=== PATIENT | male | born 1955 | race Caucasian/White ===

== ENCOUNTER 2017-05-12 09:14 | Inpatient (IN) | payer OTHER ==
[2017-05-12 12:23] VITALS: BMI 24.7
--- NOTE | 2017-05-12 13:50 | HP ---
COWS - Scale Resting Pulse: 1= [place] 81-100 Sweatin=Flushed/Facial Moisture Restless Observation: 3= Extraneous Movement Pupil Size: 2= Moderately Dilated Bone or Joint Aches: 2= Severe Diffuse Aches Runny Nose/ Eye Tearin= Runny Nose/Eyes GI Upset > 30mins: 3= Vomiting/Diarrhea Tremor Observation: 2= Slight Tremor Visible Yawning Observation: 2= >3x During Session Anxiety or Irritability: 2=Irritable/Anxious Goose Flesh Skin: 0=Smooth Skin COWS Score: 21 Admission ROS BHS - HPI Chief Complaint: i need help to stop using heroin Allergies/Adverse Reactions: Allergies Allergy/AdvReac Type Severity Reaction Status Date / Time No Known Allergies Allergy Verified 05/12/17 13:34 History of Present Illness: this 61 years old male with heroin dependence,requested detox,never been in detox before history of hepatitis c treated weight loss depression varicose vein of left leg Exam Limitations: No Limitations - Ebola screening Have you traveled outside of the country in the last 21 days: No Have you had contact with anyone from an Ebola affected area: No Have you been sick,other than usual withdrawal symptoms: No Do you have a fever: No - Review of Systems Constitutional: Chills, Diaphoresis, Loss of Appetite, Malaise, Night Sweats, Changes in sleep, Weakness, Unintentional Wgt. Loss EENT: reports: Tearing, Nose Congestion Respiratory: reports: No Symptoms reported Cardiac: reports: No Symptoms Reported GI: reports: Diarrhea, Nausea, Vomiting, Abdominal cramping : reports: No Symptoms Reported Musculoskeletal: reports: Back Pain, Joint Pain, Muscle Pain, Joint Stiffness Integumentary: reports: Dryness Neuro: reports: Headache, Tremors Endocrine: reports: No Symptoms Reported Hematology: reports: No Symptoms Reported Psychiatric: reports: Anxious, Depressed Patient History - Patient Medical History Hx Anemia: No Hx Asthma: No Hx Chronic Obstructive Pulmonary Disease (COPD): No Hx Cancer: No Hx Cardiac Disorders: No Hx Congestive Heart Failure: No Hx Hypertension: No Hx Hypercholesterolemia: No Hx Seizures: No Hx Diabetes: No Hx Gastrointestinal Disorders: No Hx Liver Disease: No Hx Genitourinary Disorders: No Hx Sexually Transmitted Disorders: No Hx Renal Disease (ESRD): No Hx Thyroid Disease: No Hx Human Immunodeficiency Virus (HIV): No (last 2016 negative) Hx Hepatitis C: No Hx Depression: Yes (on med) Hx Suicide Attempt: No Hx Bipolar Disorder: No Hx Schizophrenia: No Other Medical History: no suicidal,no homicidal - Patient Surgical History Past Surgical History: No - PPD History Previous Implant?: Yes Documented Results: Negative w/o proof Implanted On Prior [facility] Admission?: No PPD to be Administered?: Yes - Smoking Cessation Smoking history: Current every day smoker Have you smoked in the past 12 months: Yes Aproximately how many cigarettes per day: 2 Hx Chewing Tobacco Use: No Initiated information on smoking cessation: Yes 'Breaking Loose' booklet given: 05/12/17 - Substance & Tx. History Hx Alcohol Use: No Hx Substance Use: Yes Substance Use Type: Heroin Hx Substance Use Treatment: No - Substances Abused Heroin Route: Inhalation Frequency: Daily Amount used: 6-8 BAGS Age of first use: 51 Date of Last Use: 05/12/17 Family Disease History - Family Disease History Family History: Denies Admission Physical Exam S - Vital Signs Vital Signs: Vital Signs - 24 hr 05/12/17 12:22 Temperature 96.1 F L Pulse Rate 88 Respiratory 18 Rate Blood Pressure 134/84 - Physical General Appearance: Yes: Moderate Distress, Tremorous, Irritable, Sweating, Anxious HEENTM: Yes: Hearing grossly Normal, Normocephalic, CELI, Pharynx Normal Respiratory: Yes: Lungs Clear, Normal Breath Sounds, No Respiratory Distress Neck: Yes: Within Normal Limits Breast: Yes: Within Normal Limits Cardiology: Yes: Within Normal Limits, Regular Rhythm, Regular Rate, S1, S2 Abdominal: Yes: Within Normal Limits, Normal Bowel Sounds, Non Tender, Flat, Soft, Other (tinea corporis of abdomen on medicatiion) Genitourinary: Yes: Within Normal Limits Back: Yes: Muscle Spasm Musculoskeletal: Yes: Back pain, Joint Stiffness, Muscle Pain Extremities: Yes: Normal Range of Motion, Tremors, Other (varicose of left leg) Neurological: Yes: placement director II-XII NML intact, Alert, Motor Strength 5/5 Integumentary: Yes: Dry Lymphatic: Yes: Within Normal Limits - Diagnostic (1) Opioid dependence with withdrawal Current Visit: Yes Status: Acute (2) Depression Current Visit: Yes Status: Acute (3) Varicose veins of left lower extremity Current Visit: Yes Status: Acute (4) Tinea corporis Current Visit: Yes Status: Acute (5) Weight loss Current Visit: Yes Status: Acute (6) Hepatitis C Current Visit: Yes Status: Acute Cleared for Admission [facility] - Detox or Rehab [facility] Level of Care: Medically Managed Detox Regimen/Protocol: Methadone [facility] Breath Alcohol Content Breath Alcohol Content: 0 Urine Drug Screen - Results Drug Screen Negative: No Urine Drug Screen Results: OPI-Opiates
[2017-05-12] MEDS ORDERED: ACETAMINOPHEN 325 MG TABLET (FP) PO PRN (14:03)
[2017-05-12] MEDS ORDERED: MAG HYDROX/AL HYDROX/SIMETH 30 ML UNIT-DOSE CUP PO PRN (14:03)
[2017-05-12] MEDS ORDERED: MAGNESIUM HYDROX 2400MG/30ML ORAL SUSPENSION 30 ML CUP PO PRN (14:03)
[2017-05-12] MEDS ORDERED: IBUPROFEN 400 MG TABLET (FP) PO PRN (14:03)
[2017-05-12] MEDS ORDERED: MAGNESIUM CITRATE 300 ML BOTTLE PO PRN (14:03)
[2017-05-12] MEDS ORDERED: LOPERAMIDE HCL 2 MG CAPSULE PO PRN (14:03)
[2017-05-12] MEDS ORDERED: guaiFENesin/D-METHORPHAN HB 10 ML UNIT-DOSE CUPS PO PRN (14:03)
[2017-05-12] MEDS ORDERED: MENTHOL/PHENOL 1 EACH UD MM PRN (14:03)
[2017-05-12] MEDS ORDERED: P-EPHED 60MG/TRIPROLIDI 2.5MG TABLET PO PRN (14:03)
[2017-05-12] MEDS ORDERED: METHADONE HCL 10 MG TABLET (FOR DETOX USE ONLY) PO ONE ×2 (15:00→23:00)
[2017-05-12] MEDS: diazePAM 5 MG TABLET PO PRN ×2 (15:10→22:43)
[2017-05-12 17:58] LABS: URINE APPEARANCE CLEAR; URINE BILIRUBIN NEGATIVE (NEGATIVE); URINE BLOOD NEGATIVE (NEGATIVE); URINE COLOR DKYELLOW; URINE GLUCOSE (UA) NEGATIVE (NEGATIVE); URINE KETONE TRACE (NEGATIVE); URINE LEUK ESTERASE NEGATIVE (NEGATIVE); URINE NITRITE NEGATIVE (NEGATIVE); URINE PROTEIN NEGATIVE (NEGATIVE)
[2017-05-12] MEDS: PATIENT'S OWN MEDICATION (NON-FORMULARY) (Econazole Nitrate 1% [Spectazole 1%] 85 GM) TP SCH (22:42)
[2017-05-12] MEDS: THIAMINE HCL 100 MG TABLET (FP) PO SCH (22:43)
[2017-05-13] MEDS ORDERED: METHADONE HCL 10 MG TABLET (FOR DETOX USE ONLY) PO ONE (10:00)
[2017-05-13 10:56] LABS: ALBUMIN 4.5 g/dl (3.4-5.0); ANION GAP 5 (8-16); BILIRUBIN,TOTAL 0.9 mg/dL (0.2-1.0); CALCIUM 10.1 mg/dL (8.5-10.1); CO2 31 mmol/L (21-32); CREATININE 0.8 mg/dL (0.7-1.3); GLUCOSE,RANDOM 107 mg/dL (74-106); SGOT/AST 22 U/L (15-37); SGPT/ALT 21 U/L (12-78)
[2017-05-13] MEDS: PRENATAL VITAMINS W/ FOLIC ACID TABLET (FP) PO SCH (10:56)
[2017-05-13 10:57] LABS: ALK PHOS 59 U/L (45-117)
[2017-05-13] MEDS: PATIENT'S OWN MEDICATION (NON-FORMULARY) (Econazole Nitrate 1% [Spectazole 1%] 85 GM) TP SCH ×2 (10:57→22:38)
[2017-05-13] MEDS: diazePAM 5 MG TABLET PO PRN (10:57)
[2017-05-13] MEDS: ASPIRIN 81 MG CHEWABLE TABLETS PO SCH (10:57)
[2017-05-13 11:07] LABS: MCH 32.2 pg (25.7-33.7); MCHC 33.5 g/dl (32.0-35.9); MEAN CELL VOLUME 96.3 fl (80-96); MEAN PLT VOLUME 9.1 fl (7.5-11.1); PLATELET COUNT 122 K/MM3 (134-434); RDW 13.3 % (11.9-15.9); WHITE BLOOD COUNT 4.5 K/mm3 (4.0-10.0)
--- NOTE | 2017-05-13 11:49 | PN ---
BHS COWS - Scale Resting Pulse: 0= [place] 80 or Below Sweatin= Chills/Flushing Restless Observation: 3= Extraneous Movement Pupil Size: 1= Pupils >than Normal Bone or Joint Aches: 2= Severe Diffuse Aches Runny Nose/ Eye Tearin= Runny Nose/Eyes GI Upset > 30mins: 3= Vomiting/Diarrhea Tremor Observation of Outstretched Hands: 2= Slight Tremor Visible Yawning Observation: 1= 1-2x During Session Anxiety or Irritability: 2=Irritable/Anxious Goose Flesh Skin: 0=Smooth Skin COWS Score: 17 BHS Progress Note (SOAP) Subjective: alert,irritable,anxious,interrupted sleep,tremor,pain in the body and back Objective: 05/13/17 11:47 Vital Signs Temperature 96.8 F L 05/13/17 09:47 Pulse Rate 104 H 05/13/17 09:47 Respiratory Rate 16 05/13/17 09:47 Blood Pressure 105/73 05/13/17 09:47 O2 Sat by Pulse Oximetry (%) ekg nsr with sinus arrhythmia Laboratory Last Values WBC 4.5 K/mm3 (4.0-10.0) 05/13/17 06:00 RBC 4.56 M/mm3 (4.00-5.60) 05/13/17 06:00 Hgb 14.7 GM/dL (11.7-16.9) 05/13/17 06:00 Hct 43.9 % (35.4-49) 05/13/17 06:00 MCV 96.3 fl (80-96) H 05/13/17 06:00 MCH 32.2 pg (25.7-33.7) 05/13/17 06:00 MCHC 33.5 g/dl (32.0-35.9) 05/13/17 06:00 RDW 13.3 % (11.9-15.9) 05/13/17 06:00 Plt Count 122 K/MM3 (134-434) L 05/13/17 06:00 MPV 9.1 fl (7.5-11.1) 05/13/17 06:00 Sodium 137 mmol/L (136-145) 05/13/17 06:00 Potassium 4.5 mmol/L (3.5-5.1) 05/13/17 06:00 Chloride 101 mmol/L (98-107) 05/13/17 06:00 Carbon Dioxide 31 mmol/L (21-32) 05/13/17 06:00 Anion Gap 5 (8-16) L 05/13/17 06:00 BUN 19 mg/dL (7-18) H 05/13/17 06:00 Creatinine 0.8 mg/dL (0.7-1.3) 05/13/17 06:00 Creat Clearance w eGFR > 60 (>60) 05/13/17 06:00 Random Glucose 107 mg/dL (74-106) H 05/13/17 06:00 Calcium 10.1 mg/dL (8.5-10.1) 05/13/17 06:00 Total Bilirubin 0.9 mg/dL (0.2-1.0) 05/13/17 06:00 AST 22 U/L (15-37) 05/13/17 06:00 ALT 21 U/L (12-78) 05/13/17 06:00 Alkaline Phosphatase 59 U/L (45-117) 05/13/17 06:00 Total Protein 8.0 g/dl (6.4-8.2) 05/13/17 06:00 Albumin 4.5 g/dl (3.4-5.0) 05/13/17 06:00 Urine Color Dkyellow 05/12/17 15:00 Urine Appearance Clear 05/12/17 15:00 Urine pH 6.0 (5.0-8.0) 05/12/17 15:00 Ur Specific [place] 1.025 (1.005-1.025) 05/12/17 15:00 Urine Protein Negative (NEGATIVE) 05/12/17 15:00 Urine Glucose (UA) Negative (NEGATIVE) 05/12/17 15:00 Urine Ketones Trace (NEGATIVE) H 05/12/17 15:00 Urine Blood Negative (NEGATIVE) 05/12/17 15:00 Urine Nitrite Negative (NEGATIVE) 05/12/17 15:00 Urine Bilirubin Negative (NEGATIVE) 05/12/17 15:00 Urine Urobilinogen 2.0 mg/dL (0.2-1.0) 05/12/17 15:00 Ur Leukocyte Esterase Negative (NEGATIVE) 05/12/17 15:00 Assessment: 05/13/17 11:48 withdrawal symptom Plan: continue detox
--- NOTE | 2017-05-13 15:59 | CONSULT ---
[facility] Psychiatric Consult - Data Date of interview: 05/13/17 Admission source: [facility] Identifying data: First admission to [facility] for this 61 y/o AA male seeking detox treatment on for heroin dependence.Patient is single without children,homeless,unemployed and supported on food stamps. Substance Abuse History: patient endorses a relatively recent history of heroin abuse (started 10 years ago) via snorting.Occasional smoking.Last use : yesterday. Medical History: Past history of hepatitis C (treated) and varicose veins (left leg). Psychiatric History: Patient denies past history of psychiatric hospitalizations.He,however,aknowledges current OPD care (private psychiatrist) on a regimen of cymbalta 120 mg/day.Diagnosed with MDD.Mr Carr denies history of suicide attempts. Physical/Sexual Abuse/Trauma History: Patient denies. Additional Comment: Urine Drug Screen Results: OPI-Opiates.Noted. Mental Status Exam - Mental Status Exam Alert and Oriented to: Time, Place, Person Cognitive Function: Good Patient Appearance: Well Groomed Mood: Withdrawn, Hopeful Affect: Appropriate, Normal Range Patient Behavior: Fatigued, Appropriate, Cooperative Speech Pattern: Clear Voice Loudness: Normal Thought Process: Intact, Goal Oriented Thought Disorder: Not Present Hallucinations: Denies Suicidal Ideation: Denies Homicidal Ideation: Denies Insight/Judgement: Poor Sleep: Well (self-report) Appetite: Good Muscle strength/Tone: Normal Gait/Station: Normal Psychiatric Findings - Problem List ([place] 1, 2,3) (1) Opioid dependence with withdrawal Current Visit: Yes Status: Acute (2) Substance induced mood disorder Current Visit: Yes Status: Acute (3) MDD (major depressive disorder) Current Visit: Yes Status: Acute Comment: Self-report. (4) Hepatitis C Current Visit: Yes Status: Chronic (5) Tinea corporis Current Visit: Yes Status: Chronic (6) Varicose veins of left lower extremity Current Visit: Yes Status: Acute (7) Weight loss Current Visit: Yes Status: Chronic - Initial Treatment Plan Initial Treatment Plan: Psychoeducation.Detoxification.Cymbalta 120 mg po daily.Medication reconciled and recent pharmacy claims are reviewed.Side effects /benefits of duloxetine : discussed with the patient.He agrees to take this medication in this hospital course.Observation.NO script at discharge : refill already issued by psychiatrist,Dr Debora Barrera,at [facility] on .
[2017-05-13] MEDS: THIAMINE HCL 100 MG TABLET (FP) PO SCH (22:37)
[2017-05-13] MEDS: diphenhydrAMINE HCL 50 MG CAPSULE PO PRN (22:43)
[2017-05-14] MEDS: diphenhydrAMINE HCL 50 MG CAPSULE PO PRN ×2 (01:35→22:25)
[2017-05-14] MEDS: diazePAM 5 MG TABLET PO PRN ×5 (01:35→22:25)
[2017-05-14] MEDS ORDERED: METHADONE HCL 5 MG TABLET (FOR DETOX USE ONLY) PO ONE (10:00)
[2017-05-14] MEDS: ASPIRIN 81 MG CHEWABLE TABLETS PO SCH (10:31)
[2017-05-14] MEDS: DULoxetine HCL 60 MG CAPSULE.DR PO SCH (10:31)
[2017-05-14] MEDS: PATIENT'S OWN MEDICATION (NON-FORMULARY) (Econazole Nitrate 1% [Spectazole 1%] 85 GM) TP SCH ×2 (10:32→22:26)
[2017-05-14] MEDS: PRENATAL VITAMINS W/ FOLIC ACID TABLET (FP) PO SCH (10:32)
[2017-05-14] MEDS: hydrOXYzine PAMOATE 25 MG CAPSULE (FP) PO PRN (10:32)
--- NOTE | 2017-05-14 10:44 | PN ---
S CIWA - CIWA Score Nausea/Vomitin Muscle Tremors: 3 Anxiety: 3 Agitation: 2 Paroxysmal Sweats: 1-Minimal Palms Moist Orientation: 0-Oriented Tacttile Disturbances: 1-Very Mild Itch/Numbness Auditory Disturbances: 1-Very Mild Visual Disturbances: 1-Very Mild Sensitivity Headache: 2-Mild CIWA-Ar Total Score: 17 BHS COWS - Scale Resting Pulse: 0= [place] 80 or Below Sweatin= Chills/Flushing Restless Observation: 3= Extraneous Movement Pupil Size: 1= Pupils >than Normal Bone or Joint Aches: 2= Severe Diffuse Aches Runny Nose/ Eye Tearin= Runny Nose/Eyes GI Upset > 30mins: 2= Nausea/Diarrhea Tremor Observation of Outstretched Hands: 2= Slight Tremor Visible Yawning Observation: 1= 1-2x During Session Anxiety or Irritability: 2=Irritable/Anxious Goose Flesh Skin: 0=Smooth Skin COWS Score: 16 S Progress Note (SOAP) Subjective: ALERT,IRRITABLE,ANXIOUS,INTERRUPTED SLEEP,TREMOR,PAIN IN THE BODY AND BACK Objective: 05/14/17 10:43 Vital Signs Temperature 96.1 F L 05/14/17 09:56 Pulse Rate 81 05/14/17 09:56 Respiratory Rate 18 05/14/17 09:56 Blood Pressure 129/95 05/14/17 09:56 O2 Sat by Pulse Oximetry (%) Laboratory Last Values WBC 4.5 K/mm3 (4.0-10.0) 05/13/17 06:00 RBC 4.56 M/mm3 (4.00-5.60) 05/13/17 06:00 Hgb 14.7 GM/dL (11.7-16.9) 05/13/17 06:00 Hct 43.9 % (35.4-49) 05/13/17 06:00 MCV 96.3 fl (80-96) H 05/13/17 06:00 MCH 32.2 pg (25.7-33.7) 05/13/17 06:00 MCHC 33.5 g/dl (32.0-35.9) 05/13/17 06:00 RDW 13.3 % (11.9-15.9) 05/13/17 06:00 Plt Count 122 K/MM3 (134-434) L 05/13/17 06:00 MPV 9.1 fl (7.5-11.1) 05/13/17 06:00 Sodium 137 mmol/L (136-145) 05/13/17 06:00 Potassium 4.5 mmol/L (3.5-5.1) 05/13/17 06:00 Chloride 101 mmol/L (98-107) 05/13/17 06:00 Carbon Dioxide 31 mmol/L (21-32) 05/13/17 06:00 Anion Gap 5 (8-16) L 05/13/17 06:00 BUN 19 mg/dL (7-18) H 05/13/17 06:00 Creatinine 0.8 mg/dL (0.7-1.3) 05/13/17 06:00 Creat Clearance w eGFR > 60 (>60) 05/13/17 06:00 Random Glucose 107 mg/dL (74-106) H 05/13/17 06:00 Calcium 10.1 mg/dL (8.5-10.1) 05/13/17 06:00 Total Bilirubin 0.9 mg/dL (0.2-1.0) 05/13/17 06:00 AST 22 U/L (15-37) 05/13/17 06:00 ALT 21 U/L (12-78) 05/13/17 06:00 Alkaline Phosphatase 59 U/L (45-117) 05/13/17 06:00 Total Protein 8.0 g/dl (6.4-8.2) 05/13/17 06:00 Albumin 4.5 g/dl (3.4-5.0) 05/13/17 06:00 Urine Color Dkyellow 05/12/17 15:00 Urine Appearance Clear 05/12/17 15:00 Urine pH 6.0 (5.0-8.0) 05/12/17 15:00 Ur Specific [place] 1.025 (1.005-1.025) 05/12/17 15:00 Urine Protein Negative (NEGATIVE) 05/12/17 15:00 Urine Glucose (UA) Negative (NEGATIVE) 05/12/17 15:00 Urine Ketones Trace (NEGATIVE) H 05/12/17 15:00 Urine Blood Negative (NEGATIVE) 05/12/17 15:00 Urine Nitrite Negative (NEGATIVE) 05/12/17 15:00 Urine Bilirubin Negative (NEGATIVE) 05/12/17 15:00 Urine Urobilinogen 2.0 mg/dL (0.2-1.0) 05/12/17 15:00 Ur Leukocyte Esterase Negative (NEGATIVE) 05/12/17 15:00 RPR Titer Nonreactive (NONREACTIVE) 05/13/17 06:00 Assessment: 05/14/17 10:43 WITHDRAWAL SYMPTOM Plan: CONTINUE DETOX
[2017-05-14] MEDS: THIAMINE HCL 100 MG TABLET (FP) PO SCH (22:25)
[2017-05-15] MEDS: diazePAM 5 MG TABLET PO PRN ×2 (05:49→12:18)
[2017-05-15] MEDS ORDERED: METHADONE HCL 5 MG TABLET (FOR DETOX USE ONLY) PO ONE (10:00)
--- NOTE | 2017-05-15 10:35 | PN ---
BHS Progress Note (SOAP) Subjective: ALERT,IRRITABLE,ANXIOUS,INTERRUPTED SLEEP,PAIN IN THE BODY AND BACK Objective: 05/15/17 10:34 Vital Signs Temperature 97.5 F L 05/15/17 10:00 Pulse Rate 83 05/15/17 10:00 Respiratory Rate 18 05/15/17 10:00 Blood Pressure 128/83 05/15/17 10:00 O2 Sat by Pulse Oximetry (%) Assessment: 05/15/17 10:34 WITHDRAWAL SYMPTOM Plan: CONTINUE DETOX
[2017-05-15] MEDS: PRENATAL VITAMINS W/ FOLIC ACID TABLET (FP) PO SCH (11:05)
[2017-05-15] MEDS: DULoxetine HCL 60 MG CAPSULE.DR PO SCH (11:05)
[2017-05-15] MEDS: ASPIRIN 81 MG CHEWABLE TABLETS PO SCH (11:05)
[2017-05-15] MEDS: PATIENT'S OWN MEDICATION (NON-FORMULARY) (Econazole Nitrate 1% [Spectazole 1%] 85 GM) TP SCH ×2 (11:06→22:12)
--- NOTE | 2017-05-15 12:02 | EKG ---
Test Reason : Blood Pressure : / mmHG Vent. Rate : 066 BPM Atrial Rate : 066 BPM P-R Int : 164 ms QRS Dur : 098 ms QT Int : 414 ms P-R-T Axes : 061 036 050 degrees QTc Int : 434 ms NORMAL SINUS RHYTHM WITH SINUS ARRHYTHMIA NORMAL ECG NO PREVIOUS ECGS AVAILABLE Confirmed by DALLAS ROPER MD ([id number]) on 05/15/2017 12:02:04 PM Referred By: Confirmed By:DALLAS ROPER MD
[2017-05-15] MEDS: THIAMINE HCL 100 MG TABLET (FP) PO SCH (22:11)
[2017-05-15] MEDS: diphenhydrAMINE HCL 50 MG CAPSULE PO PRN (22:11)
[2017-05-16] MEDS: hydrOXYzine PAMOATE 25 MG CAPSULE (FP) PO PRN ×2 (03:08→10:54)
[2017-05-16] MEDS ORDERED: METHADONE HCL 10 MG TABLET (FOR DETOX USE ONLY) PO ONE (10:00)
--- NOTE | 2017-05-16 10:40 | PN ---
S Progress Note (SOAP) Subjective: ALERT,INTERRUPTED SLEEP,ANXIOUS Objective: 05/16/17 10:39 Vital Signs Temperature 98.8 F 05/16/17 10:30 Pulse Rate 98 H 05/16/17 10:30 Respiratory Rate 20 05/16/17 10:30 Blood Pressure 94/70 05/16/17 10:30 O2 Sat by Pulse Oximetry (%) Assessment: 05/16/17 10:39 WITHDRAWAL SYMPTOM Plan: CONTINUE DETOX,DISCHARGE IN AM
[2017-05-16] MEDS: DULoxetine HCL 60 MG CAPSULE.DR PO SCH (10:54)
[2017-05-16] MEDS: ASPIRIN 81 MG CHEWABLE TABLETS PO SCH (10:54)
[2017-05-16] MEDS: PRENATAL VITAMINS W/ FOLIC ACID TABLET (FP) PO SCH (10:54)
[2017-05-16] MEDS: PATIENT'S OWN MEDICATION (NON-FORMULARY) (Econazole Nitrate 1% [Spectazole 1%] 85 GM) TP SCH ×2 (10:54→22:43)
[2017-05-16] MEDS: THIAMINE HCL 100 MG TABLET (FP) PO SCH (22:43)
[2017-05-16] MEDS: diphenhydrAMINE HCL 50 MG CAPSULE PO PRN (22:44)
[2017-05-17] MEDS ORDERED: METHADONE HCL 5 MG TABLET (FOR DETOX USE ONLY) PO ONE (06:00)
--- NOTE | 2017-05-17 09:03 | DS ---
[facility] Detox Discharge Summary Admission Date: 05/12/17 Discharge Date: 05/17/17 - History Present History: Opioid Dependence Additional Comments: FOLLOW UP WITH AFTER CARE PROGRAM ARRANGEMENT Pertinent Past History: VARICOSE VEIN LEFT LEG TINEA CORPORIS HEPATITIS C DEPRESSION WEIGHT LOSS - Physical Exam Results Vital Signs: Vital Signs Temperature 98.5 F 05/17/17 06:23 Pulse Rate 76 05/17/17 06:23 Respiratory Rate 16 05/17/17 06:23 Blood Pressure 106/67 05/17/17 06:23 O2 Sat by Pulse Oximetry (%) Pertinent Admission Physical Exam Findings: WITHDRAWAL SYMPTOM - Treatment Hospital Course: Detox Protocol Followed, Detoxed Safely, Responded well, Discharged Condition Good, Rehab Referral Accepted Patient has Accepted a Rehab Referral to: [facility] - Medication Discharge Medications: Ambulatory Orders Aspirin [ASA -] 81 mg PO DAILY 05/12/17 Duloxetine HCl [Cymbalta -] 120 mg PO DAILY 05/12/17 Econazole Nitrate 1% [Spectazole 1%] 85 gm TP BID 05/12/17 Multivitamin [Poly-Vitamin] 1 each PO DAILY 05/12/17 - Diagnosis (1) Opioid dependence with withdrawal Current Visit: Yes Status: Acute (2) Depression Current Visit: Yes Status: Acute (3) Varicose veins of left lower extremity Current Visit: Yes Status: Acute (4) Tinea corporis Current Visit: Yes Status: Chronic (5) Weight loss Current Visit: Yes Status: Chronic (6) Hepatitis C Current Visit: Yes Status: Chronic - AMA Did Patient Leave Against Medical Advice: No
[2017-05-17 09:59] VITALS: BP 91/66; PULSE 110; TEMP 96.6
[2017-05-17] MEDS: PRENATAL VITAMINS W/ FOLIC ACID TABLET (FP) PO SCH (10:46)
[2017-05-17] MEDS: PATIENT'S OWN MEDICATION (NON-FORMULARY) (Econazole Nitrate 1% [Spectazole 1%] 85 GM) TP SCH (10:48)
[2017-05-17] MEDS: ASPIRIN 81 MG CHEWABLE TABLETS PO SCH (10:48)
[2017-05-17] MEDS: DULoxetine HCL 60 MG CAPSULE.DR PO SCH (10:48)
== END 2017-05-17 12:44 | disposition other institution (70) | DRG 773 ==
LOC: YASAS 09:14 → Y6N 14:02
PROVIDERS: ADMIT Internal Medicine Addiction Medicine; ATTEND Internal Medicine Addiction Medicine
PROC: HZ2ZZZZ Detoxification Services for Substance Abuse Treatment (ICD-10-PCS; principal; 2017-05-12)
DX: F11.23 Opioid dependence with withdrawal (principal); F17.210 Nicotine dependence, cigarettes, uncomplicated; F19.24 Other psychoactive substance dependence with psychoactive substance-induced mood disorder; F33.9 Major depressive disorder, recurrent, unspecified; I49.9 Cardiac arrhythmia, unspecified; B18.2 Chronic viral hepatitis C; I83.92 Asymptomatic varicose veins of left lower extremity; B35.4 Tinea corporis; Z87.898 Personal history of other specified conditions
CPT/HCPCS: 36415; 80053; 81003; 85027; 86593; 93005; 93010

== ENCOUNTER 2017-05-17 12:39 | Inpatient (IN) | payer OTHER ==
[2017-05-17] MEDS ORDERED: ACETAMINOPHEN 325 MG TABLET (FP) PO PRN (15:00)
[2017-05-17] MEDS ORDERED: guaiFENesin/D-METHORPHAN HB 10 ML UNIT-DOSE CUPS PO PRN (15:00)
[2017-05-17] MEDS ORDERED: hydrOXYzine PAMOATE 50 MG CAPSULE (FP) PO PRN (15:00)
[2017-05-17] MEDS ORDERED: MAGNESIUM HYDROX 2400MG/30ML ORAL SUSPENSION 30 ML CUP PO PRN (15:00)
[2017-05-17] MEDS ORDERED: P-EPHED 60MG/TRIPROLIDI 2.5MG TABLET PO PRN (15:00)
[2017-05-17] MEDS ORDERED: MAG HYDROX/AL HYDROX/SIMETH 30 ML UNIT-DOSE CUP PO PRN (15:00)
[2017-05-17] MEDS ORDERED: LOPERAMIDE HCL 2 MG CAPSULE PO PRN (15:00)
[2017-05-17] MEDS ORDERED: MENTHOL/PHENOL 1 EACH UD MM PRN (15:00)
[2017-05-17] MEDS ORDERED: IBUPROFEN 400 MG TABLET (FP) PO PRN (15:00)
[2017-05-17] MEDS ORDERED: MAGNESIUM CITRATE 300 ML BOTTLE PO PRN (15:00)
--- NOTE | 2017-05-17 15:00 | HP ---
[facility] Rehab Assess/Revision - Admission History Admitted to Rehab from: [facility] Date of Admission to Rehab: 05/17/17 - Vital signs Vital Signs: Vital Signs Period Temp Pulse Resp BP Sys/[place] Pulse Ox Last 24 Hr 97.9 F 102 18 107/63 - Findings Detox History & Physical reviewed: Yes Concur with findings: Yes Comments/Additional Findings: for rehab as protocol
[2017-05-17] MEDS: THIAMINE HCL 100 MG TABLET (FP) PO SCH (21:19)
[2017-05-17] MEDS: diphenhydrAMINE HCL 50 MG CAPSULE PO PRN (21:19)
[2017-05-17] MEDS: TOLNAFTATE 1% CREAM 15 GM TUBE TP SCH (21:20)
--- NOTE | 2017-05-18 08:03 | HP ---
Psychiatrist Admission - Data Date of interview: 05/18/17 Admission source: [facility]N Identifying data: This is the first [facility] inpatient rehabilitation admission for this 61 year old male who is single without children,homeless,unemployed and supported on food stamps Medical History: History of treated He C and left leg varicose veins Psychiatric History: Patient reports no history of psychiatric hospitalizations , but has been depressed for the past 4 years after loss of his mother, was diagnosed as MDD, he currently on Cymbalta 120 mg po daily. Patient reports he still depressed. During the evaluation patient was tearful. Physical/Sexual Abuse/Trauma History: Patient denies history of sexual, physical and verbal abuse. No history of service. Additional Comment: Reports loss of his mother and then job, escalated his addiction. Vital Signs: Vital Signs - 24 hr 05/17/17 05/18/17 05/18/17 12:48 03:30 06:34 Temperature 97.9 F 97.6 F Pulse Rate 102 H 90 Respiratory 18 18 18 Rate Blood Pressure 107/63 100/74 Allergies/Adverse Reactions: Allergies Allergy/AdvReac Type Severity Reaction Status Date / Time No Known Allergies Allergy Verified 05/17/17 12:49 Date of last physical exam: 05/13/17 Concur with the findings of this exam: Yes - Substance Abuse/Tx History Hx Alcohol Use: No Substance Use Type: Heroin (started 10 years ago, uses/sniffs 10 bags a day.) Hx Substance Use Treatment: No (this is first rehab. treatment.) - Admission Criteria Previous failed treatment: Yes Poor recovery environment: Yes Comorbidities: Yes Lacks judgement: Yes Mental Status Exam - Mental Status Exam Alert and Oriented to: Time, Place, Person Cognitive Function: Grossly Intact Patient Appearance: Well Groomed Mood: Depressed, Sad Affect: Appropriate, Mood Congruent, Labile Patient Behavior: Crying, Appropriate, Cooperative Speech Pattern: Clear, Appropriate Voice Loudness: Normal Thought Process: Intact Thought Disorder: Not Present Hallucinations: Denies Suicidal Ideation: Denies Homicidal Ideation: Denies Insight/Judgement: Fair Sleep: Fair Appetite: Fair Muscle strength/Tone: Normal Gait/Station: Normal Psychiatric Findings - Problem List ([place] 1, 2,3) (1) MDD (major depressive disorder) Current Visit: No Status: Acute Comment: Self-report. (2) Opioid dependence Current Visit: Yes Status: Acute - Initial Treatment Plan Initial Treatment Plan: Discussed inidications and properteis of Wellbutrin with the patient, he agreed to start medication, will add 100 mg of Wellbutrin, continue to monitor progress.
[2017-05-18] MEDS: ASPIRIN 81 MG CHEWABLE TABLETS PO SCH (10:21)
[2017-05-18] MEDS: TOLNAFTATE 1% CREAM 15 GM TUBE TP SCH ×2 (10:21→21:43)
[2017-05-18] MEDS: NICOTINE 21 MG/24 HOURS TOPICAL PATCH TD SCH (10:21)
[2017-05-18] MEDS: DULoxetine HCL 60 MG CAPSULE.DR PO SCH (10:21)
[2017-05-18] MEDS: PRENATAL VITAMINS W/ FOLIC ACID TABLET (FP) PO SCH (10:21)
[2017-05-18] MEDS: buPROPion HCL 100 MG TABLET PO SCH (11:08)
[2017-05-18] MEDS ORDERED: NICOTINE POLACRILEX 2 MG GUM BUC ONE (20:44)
[2017-05-18] MEDS: THIAMINE HCL 100 MG TABLET (FP) PO SCH (21:42)
[2017-05-18] MEDS: diphenhydrAMINE HCL 50 MG CAPSULE PO PRN (21:43)
[2017-05-19] MEDS: ASPIRIN 81 MG CHEWABLE TABLETS PO SCH (10:42)
[2017-05-19] MEDS: buPROPion HCL 100 MG TABLET PO SCH (10:42)
[2017-05-19] MEDS: PRENATAL VITAMINS W/ FOLIC ACID TABLET (FP) PO SCH (10:42)
[2017-05-19] MEDS: TOLNAFTATE 1% CREAM 15 GM TUBE TP SCH ×2 (10:43→23:13)
[2017-05-19] MEDS: NICOTINE 21 MG/24 HOURS TOPICAL PATCH TD SCH (10:43)
[2017-05-19] MEDS: DULoxetine HCL 60 MG CAPSULE.DR PO SCH (10:43)
[2017-05-19] MEDS: THIAMINE HCL 100 MG TABLET (FP) PO SCH (21:42)
[2017-05-19] MEDS: diphenhydrAMINE HCL 50 MG CAPSULE PO PRN (21:43)
[2017-05-20 07:27] VITALS: BP 109/69; PULSE 102; TEMP 97.2
[2017-05-20] MEDS: ASPIRIN 81 MG CHEWABLE TABLETS PO SCH (10:20)
[2017-05-20] MEDS: buPROPion HCL 100 MG TABLET PO SCH (10:20)
[2017-05-20] MEDS: PRENATAL VITAMINS W/ FOLIC ACID TABLET (FP) PO SCH (10:20)
[2017-05-20] MEDS: NICOTINE 21 MG/24 HOURS TOPICAL PATCH TD SCH (10:20)
[2017-05-20] MEDS: TOLNAFTATE 1% CREAM 15 GM TUBE TP SCH (10:21)
[2017-05-20] MEDS: DULoxetine HCL 60 MG CAPSULE.DR PO SCH (10:21)
== END 2017-05-20 13:00 | disposition left against medical advice (07) | DRG 770 ==
LOC: YASAS 12:39 → Y5N 12:40
PROVIDERS: ADMIT Psychiatry & Neurology Psychiatry; ATTEND Psychiatry & Neurology Psychiatry
PROC: HZ2ZZZZ Detoxification Services for Substance Abuse Treatment (ICD-10-PCS; principal; 2017-05-20)
DX: F11.20 Opioid dependence, uncomplicated (principal); F33.9 Major depressive disorder, recurrent, unspecified

== ENCOUNTER 2024-07-11 11:48 | Inpatient (IN) | payer OTHER ==
[2024-07-11 12:36] VITALS: BMI 24.3
[2024-07-11] MEDS ORDERED: NALOXONE HCL 0.4 MG/ML VIAL IM PRN (13:35)
[2024-07-11] MEDS ORDERED: NALOXONE (NARCAN) HCL 4 MG/0.1 ML SPRAY NS PRN (13:35)
[2024-07-11] MEDS ORDERED: DICYCLOMINE HCL 10 MG CAPSULE PO PRN (13:35)
[2024-07-11] MEDS ORDERED: POLYETHYLENE GLYCOL (HEALTHYLAX) 3350 17 GM PACKET PO PRN (13:35)
[2024-07-11] MEDS ORDERED: BISMUTH SUBSALICYLATE 524 MG/30 ML PO PRN (13:35)
[2024-07-11] MEDS ORDERED: BENZONATATE 200 MG CAPSULE PO PRN (13:35)
[2024-07-11] MEDS ORDERED: LOPERAMIDE HCL 2 MG CAPSULE PO PRN (13:35)
[2024-07-11] MEDS ORDERED: ACETAMINOPHEN 325 MG TABLET (FP) PO PRN (13:35)
[2024-07-11] MEDS ORDERED: ONDANSETRON *ODT* 4 MG TABLET SL PRN (13:35)
[2024-07-11] MEDS ORDERED: guaiFENesin 600 MG TABLET.ER (FP) PO PRN (13:35)
[2024-07-11] MEDS ORDERED: BENZOCAINE/MENTHOL (CHLORASEPTIC ) LOZENGE MM PRN (13:35)
[2024-07-11] MEDS ORDERED: cloNIDine HCL 0.1 MG TABLET PO PRN (13:35)
[2024-07-11] MEDS ORDERED: IBUPROFEN 600 MG TABLET (FP) PO PRN (13:35)
[2024-07-11] MEDS ORDERED: MAGNESIUM HYDROX 2400MG/30ML ORAL SUSPENSION 30 ML CUP PO PRN (13:35)
[2024-07-11] MEDS ORDERED: MAG HYDROX/AL HYDROX/SIMETH 30 ML UNIT-DOSE CUP PO PRN (13:35)
[2024-07-11] MEDS ORDERED: methaDONE HCL 10 MG TABLET (FOR DETOX USE ONLY) ONE (14:10)
[2024-07-11] MEDS ORDERED: PRENATAL VITAMINS W/ FOLIC ACID TABLET (FP) PO ONE (14:10)
[2024-07-11] MEDS: PRENATAL VITAMINS W/ FOLIC ACID TABLET (FP) PO SCH (14:13)
[2024-07-11] MEDS: methaDONE HCL 10 MG TABLET (FOR DETOX USE ONLY) PO ONE (14:14)
[2024-07-11] MEDS: MELATONIN 5 MG TABLETS PO SCH (21:21)
[2024-07-11] MEDS: THIAMINE 100 MG TABLET PO SCH (21:21)
[2024-07-11] MEDS: METHOCARBAMOL 500 MG TABLET PO PRN (21:21)
[2024-07-11] MEDS: hydrOXYzine PAMOATE 25 MG CAPSULE (FP) PO PRN (21:21)
[2024-07-12] MEDS: IBUPROFEN 400 MG TABLET (FP) PO PRN (08:48)
[2024-07-12 10:26] LABS: HEMATOCRIT 40.3 % (35.4-49); HEMOGLOBIN 13.9 GM/dL (11.7-16.9); MCH 32.6 pg (25.7-33.7); MCHC 34.5 g/dl (32.0-35.9); MEAN CELL VOLUME 94.4 fl (80-96); PLATELET COUNT 180 10^3/uL (134-434); RBC 4.27 M/mm3 (4.00-5.60); RDW 13.3 % (11.9-15.9); WHITE BLOOD COUNT 4.6 K/mm3 (4.0-10.0)
[2024-07-12 10:27] LABS: POTASSIUM 4.6 mmol/L (3.5-5.1)
[2024-07-12 10:38] LABS: ALBUMIN 3.7 g/dl (3.4-5.0); BLOOD UREA NITROGEN 17.3 mg/dL (7-18); CALCIUM 10.2 mg/dL (8.5-10.1)
[2024-07-12] MEDS: ASPIRIN 81 MG CHEWABLE TABLETS PO SCH (10:40)
[2024-07-12 10:41] LABS: CREATININE 0.9 mg/dL (0.55-1.3)
[2024-07-12 10:43] LABS: TOT PROT 6.8 g/dl (6.4-8.2)
[2024-07-12 10:59] LABS: BILIRUBIN,TOTAL 0.7 mg/dL (0.2-1)
[2024-07-13] MEDS: methaDONE HCL 10 MG TABLET (FOR DETOX USE ONLY) PO ONE (10:26)
[2024-07-15] MEDS: methaDONE HCL 10 MG TABLET (FOR DETOX USE ONLY) PO ONE (09:32)
[2024-07-16 09:07] VITALS: BP 118/81; PULSE 85; RESP 18; TEMP 97.1
== END 2024-07-16 09:47 | disposition home or self-care (01) | DRG 897 ==
LOC: YASAS 11:48 → Y3N 14:04
PROVIDERS: ADMIT Allergy & Immunology; ATTEND Surgery
PROC: HZ2ZZZZ Detoxification Services for Substance Abuse Treatment (ICD-10-PCS; principal; 2024-07-11)
DX: F11.23 Opioid dependence with withdrawal (principal); F17.210 Nicotine dependence, cigarettes, uncomplicated; F32.9 Major depressive disorder, single episode, unspecified
CPT/HCPCS: 36415; 80053; 80305; 85027; 86780; 93005; 93010